=== PATIENT | male | born 1955 | race Two or more races ===

== ENCOUNTER → 2018-05-16 | Outpatient (CLI) | payer MEDICARE, OTHER ==
--- NOTE | 2018-05-16 10:28 | CONS ---
Assessment/Plan Assessment/Plan Hospital Course (Demo Recall) This is a 62-year-old maleWith diabetes type 1 and severe peripheral neuropathy. He fell 10 days ago and sustained a contusion and traumatic bursitis to his greater trochanteric bursa as well as his gluteal musculature. He also has tenderness over the sacrum and coccyx with no acute fracture apparent on x-ray. 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 Will begin conservative treatment with physical therapy as well as Voltaren gel. He should limit his activities and use ice. Follow-up in 12 weeks as needed Consultation Date/Type/Reason Admit Date/Time Date of Consultation: May 16, 2018 Reason for Consultation Left hip and back pain Date/Time of Note DATE: 05/16/18 TIME: 10:25 Hx of Present Illness 62-year-old male with history of type 1 diabetes and peripheral neuropathy. Patient has had multiple falls recently. Most recent fall was 10 days ago when he fell onto his left hip. He is complaining of lateral left hip pain as well as posterior pelvic pain. Pain is rated 7/10. Described as burning. He denies numbness and tingling other than his waistline peripheral neuropathy. He uses a cane at baseline. He has been resting. He can walk 1-2 blocks. He has difficulty with stairs. Patient denies fever, chills, shortness of breath, chest pain, nausea/vomiting, constipation, diarrhea, numbness, and tingling. Past Medical History Insulin-dependent diabetes Past Surgical History Cholecystectomy Eye surgery Family History Significant Family History: no pertinent family hx Social History Alcohol Use: none Smoking Status: Never smoker Drug Use: none Exam/Review of Systems Exam Vitals Weight: 196 pounds Height: 5 foot 7 inches Temperature: 90.4 Heart Rate: 87 Blood Pressure: 144/67 Respiratory Rate: 12 Exam General: Alert, oriented. Vital signs: Noted on the chart. Heart: Regular rate and rhythm. Lungs: No respiratory distress. No accessory muscle use. Musculoskeletal: Well developed male in no apparent distress. Gait demonstrates a mild Trendelenburg with antalgic components and no short leg component. Standing, the pelvis is level and supine there is no true leg length discrepancy. There is tenderness over trochanteric bursa and gluteal musculature. There is tenderness palpation over the coccyx Range of motion: Full painless range of motion of the hip. Sitting there is no pelvic obliquity. Minimal to no pain at the extremes of motion of the affected hip. Skin was intact throughout both lower extremities. Sensation intact to light touch in a sural, saphenous, deep peroneal, superficial peroneal, medial and lateral plantar nerve distribution. Neurovascular exam showed 5/5 strength in the abductors, quads, EHL/tibialis anterior/gastroc. Normal and symmetrical pulses were palpated in both the dorsalis pedis and posterior tibial arteries. There is no sign of venous stasis. Imaging Imaging The patient received a full set of films and personally reviewed by myself today in clinic including an AP pelvis and an AP and lateral of the affected hip. The hip is reduced. There is mild to moderate loss of joint space with both cam and pincer type ARCELIA. There is mild osteophyte formation. There is subchondral sclerosis. There are no subchondral cysts. There is no significant deformity of the the proximal femur, femoral neck, or acetabulum. No fracture. The pelvis is in continuity. Bone quality radiographically: Fair 3 views of the sacrum were obtained. There is no acute abnormality. There is degenerative changes as well as possible old fracture that is well corticated. GIL PAN MD May 16, 2018 10:28
--- NOTE | 2018-05-17 07:53 | RADRPT ---
PROCEDURE: XR Hip. CLINICAL INDICATION: Hip pain TECHNIQUE: AP and frog lateral views of the left hip were performed. COMPARISON: None. FINDINGS: The bones are normal and mineralization. No fracture or osseous lesion is identified. Mild symmetric degenerative hip joint space narrowing and acetabular spurring. There is normal articulation of the f emoral head and acetabulum. The visualized pelvis and lumbar spine are unremarkable. There are dylan l joints without evidence of arthritis or effusion. The soft tissues are unremarkable. IMPRESSION: 1. No fracture or dislocation. Mild osteoarthritic degenerative changes. RPTAT:AAJJ Physician Licha Date Time Electronically viewed and signed by Physician Licha on 05/17/2018 07:52 STEWART/
== END | disposition home or self-care (01) ==
LOC: HKI 10:06
PROVIDERS: ATTEND Orthopaedic Surgery Adult Reconstructive Orthopaedic Surgery
DX: M70.62 Trochanteric bursitis, left hip (principal); E10.40 Type 1 diabetes mellitus with diabetic neuropathy, unspecified; Z79.4 Long term (current) use of insulin
CPT/HCPCS: 72220; 73502; G0463